=== PATIENT | female | born 1950 | race Two or more races ===

== ENCOUNTER → 2017-02-19 | Outpatient (CLI) | payer MEDICARE, OTHER ==
[~2017-02-19] MED LIST: ASPIRIN-LOW81 MG ORAL; CRESTOR10 M1 ORAL; EYE VIT; FISH OIL500 M2 PO
[2017-02-19 11:22] VITALS: BP_SYST 111; BP_SYST 115; BP_DIAS 64; BP_DIAS 69
--- NOTE | 2017-02-19 11:25 | GI Initial Consult Note ---
History of Present Illness General Date patient seen: Feb 19, 2017 Time patient seen: 11:22 Reason for Consultation: ANEMIA Present Illness HPI 67 year old female patient familiar to us presents today with positive occult blood in the stool and anemia. S/P EGD and colonoscopy in July 2014 with gastritis and scattered diverticuli. Patient was found have H. pylori gastritis and was given treatment with PrevPac. Completed the H. pylori breath test and was noted to be positive. Presents today in clinic with no general GI complaints noted at this time. Home Meds Reported Medications [eye vit] No Conflict Check 01/24/15 Mccool-3 Fatty Acids (FISH OIL) 500 Mg Capsule.dr, 500 MG PO DAILY, CAP 08/02/14 Aspirin (Aspirin EC) 81 Mg Tabec, 81 MG ORAL DAILY, TAB 08/02/14 Rosuvastatin Calcium (Crestor) 10 Mg Tab, 5 MG ORAL DAILY, TAB 08/02/14 Med list reviewed/reconciled: Yes Allergies: Coded Allergies: No Known Allergies (Unverified , 08/02/14) Patient History History Provided By: Patient, Medical Record PMH Narrative DJD GERD Cataract, left eye. Astigmatism, left eye. SURGERY PERFORMED: 1. Cataract extraction with phacoemulsification and posterior chamber intraocular lens implantation, left eye. 2. Limbal-relaxing incision (LRI), left eye. 3. Left knee surgery Family History Narrative Both mother and father had colon cancer. Social History: Denies: alcohol use, drug use, other, smoking Review of Systems All Other Systems: negative except mentioned in HPI Physical Exam BP 115/69 P 64 HT 5'1 WT 124 lbs Sp02 EP Interpretation: reviewed General Appearance: well appearing, no apparent distress, alert Head: normocephalic EENT: normal ENT inspection Neck: full range of motion Respiratory: normal breath sounds, no respiratory distress Cardiovascular: normal rate Gastrointestinal: normal inspection, non tender, soft Rectal: heme positive stool Genitourinary: normal inspection Musculoskeletal: back normal Neurologic: normal inspection, alert, oriented x3, responsive Psychiatric: normal inspection, judgement/insight normal Skin: normal inspection, normal color, no rash, warm/dry Lymphatic: normal inspection, no adenopathy GI: Plan Plan (1) Encounter for diagnostic endoscopy (2) Family history of colon cancer (3) Diverticula of colon (4) H. pylori infection (5) Gastritis (6) High cholesterol (7) Anemia Plan Small Bowel Capsule Endoscopy scheduled for 02/21/17. - CLD & prep instructions given to patient. - stop all iron pills day prior procedure. Seen with Dr. Brunson. Rose Heath N.P. Feb 19, 2017 11:25
== END | disposition home or self-care (01) ==
LOC: PAN 10:29
DX: K29.70 Gastritis, unspecified, without bleeding (principal); E78.00 Pure hypercholesterolemia, unspecified; D64.9 Anemia, unspecified; A04.8 Other specified bacterial intestinal infections; K57.30 Diverticulosis of large intestine without perforation or abscess without bleeding; Z80.0 Family history of malignant neoplasm of digestive organs; M19.90 Unspecified osteoarthritis, unspecified site; K21.9 Gastro-esophageal reflux disease without esophagitis; Z79.82 Long term (current) use of aspirin
CPT/HCPCS: 99211

== ENCOUNTER → 2017-02-21 | Outpatient (CLI) | payer MEDICARE, OTHER ==
[2017-02-21 09:14] VITALS: BP 97/58
--- NOTE | 2017-02-21 14:45 | GI Progress Note ---
Assessment/Plan Problems: (1) Anemia ICD Codes: D64.9 - Anemia, unspecified SNOMED: 823394624 (2) Encounter for diagnostic endoscopy ICD Codes: Z01.818 - Encounter for other preprocedural examination SNOMED: 793205387, 259670508 (3) H. pylori infection ICD Codes: B96.81 - H. pylori infection SNOMED: 225208429 (4) Gastritis ICD Codes: K29.70 - Gastritis SNOMED: 1656231 Status: stable Status Narrative Discussed with Dr. Brunson. Assessment/Plan SBCE today RTC tomorrow Subjective Gastrointestinal/Abdominal: Reports: no symptoms Objective Last 24 Hour Vital Signs Date Time Temp Pulse Resp B/P Pulse Ox O2 Delivery O2 Flow Rate FiO2 02/21/17 09:14 64 16 97/58 General Appearance: no apparent distress, alert Cardiovascular: normal rate Respiratory/Chest: normal breath sounds, no respiratory distress Abdominal Exam: normal bowel sounds, non tender, soft Extremities: normal range of motion Rose Heath N.P. Feb 21, 2017 14:45
== END | disposition home or self-care (01) ==
LOC: PAN 08:53
DX: Z01.818 Encounter for other preprocedural examination (principal); D64.9 Anemia, unspecified; B96.81 Helicobacter pylori [H. pylori] as the cause of diseases classified elsewhere; K29.70 Gastritis, unspecified, without bleeding

== ENCOUNTER 2017-03-19 10:17 | Outpatient (CLI) | payer MEDICARE, OTHER ==
--- NOTE | 2017-03-19 10:48 | GI Progress Note ---
Assessment/Plan Problems: (1) H. pylori infection ICD Codes: B96.81 - H. pylori infection SNOMED: 984591452 (2) Gastritis ICD Codes: K29.70 - Gastritis SNOMED: 6349028 (3) Anemia ICD Codes: D64.9 - Anemia, unspecified SNOMED: 849186531 (4) Family history of colon cancer ICD Codes: Z80.0 - Family history of colon cancer SNOMED: 095191949 Status: stable Status Narrative Seen with Dr. Brunson. Assessment/Plan RTC prn repeat colonoscopy x 2 years DATE OF PROCEDURE: 02/21/2017 PROCEDURE: Capsule endoscopy. SURGEON: Roscoe Brunson M.D. CHIEF COMPLAINT: Anemia. DESCRIPTION OF PROCEDURE: The patient swallowed the camera. Camera spent about 18 minutes in the stomach before entering the small intestine. The passage of the small intestine was 2 hours and 51 minutes. So, the patient had the capsule pretty much went pass through the small intestine. Capsule entered the colon at 2 hours and 51 minutes. Quality of prep was very good. There was no evidence of any obvious source of bleeding. No mass, no polys, and no any other pathology was seen. As I mentioned, the capsule was moved through the small intestine, so that made the examination limited, but for this preliminary exam we did not find any source for the bleeding. Subjective Gastrointestinal/Abdominal: Reports: no symptoms Subjective here for SBCE review Objective Last 24 Hour Vital Signs Date Time Temp Pulse Resp B/P Pulse Ox O2 Delivery O2 Flow Rate FiO2 03/19/17 10:29 16 General Appearance: no apparent distress, alert Cardiovascular: normal rate Respiratory/Chest: normal breath sounds, no respiratory distress Abdominal Exam: normal bowel sounds, non tender, soft Extremities: normal range of motion Rose Heath N.P. March 19, 2017 10:48
== END 2017-03-19 11:00 | disposition home or self-care (01) ==
LOC: PAN 10:17
DX: K29.70 Gastritis, unspecified, without bleeding (principal); D64.9 Anemia, unspecified; A04.8 Other specified bacterial intestinal infections
CPT/HCPCS: 99211